=== PATIENT | male | born 1965 | race Caucasian/White ===

== ENCOUNTER 2020-02-25 14:59 | Outpatient (REF) | payer OTHER, SELFPAY ==
[2020-02-25 16:42] LABS: Basophils Absolute Auto 0.1 X10*3/uL (0.0-0.2); Basophils Percent Auto 0.9 % (0-2); Eosinophils Absolute Auto 0.1 X10*3/uL (0.0-0.4); Eosinophils Percent Auto 1.7 % (0-4); Hematocrit 43.6 % (42-52); Hemoglobin 14.8 g/dl (14.0-18.0); Imm Gran Abs Auto 0.02 X10*3/uL (0.00-0.03); Imm Gran Pct Auto 0.3 % (0.0-0.4); Lymphocytes Absolute Auto 2.4 X10*3/uL (1.2-4.9); Lymphocytes Percent Auto 34.5 % (20-40); MANUAL DIFF FLAG NO; Mean Corpuscular HGB Conc 33.9 g/dl (31.0-36.0); Mean Corpuscular Hemoglobin 30.6 pg (27.0-33.0); Mean Corpuscular Volume 90.1 fL (80-98); Mean Platelet Volume 10.6 fL (9.4-12.4); Monocytes Absolute Auto 0.7 X10*3/uL (0.1-1.2); Monocytes Percent Auto 9.6 % (2-11); Neutrophils Absolute Auto 3.7 X10*3/uL (2.0-8.3); Platelet Count 263 X10*3/uL (160-400); Red Blood Count 4.84 X10*6/uL (4.60-5.80); Red Cell Distribution Width 12.3 % (11.0-16.0)
[2020-02-25 17:07] LABS: Alanine Aminotransferase 19 U/L (0-40); Albumin Level 4.6 g/dL (3.5-5.0); Alkaline Phosphatase 86 U/L (39-117); Amylase 28 U/L (28-100); Anion Gap 14 (12-20); Aspartate Amino Transferase 18 U/L (5-37); Bilirubin Direct 0.2 mg/dL (0.0-0.5); Bilirubin Total 0.4 mg/dL (0.0-1.0); Blood Urea Nitrogen 14 mg/dL (9-16); Carbon Dioxide 28 mmol/L (22-29); Chloride 100 mmol/L (96-108); Estimated Glomerular Filt Rate > 60; Glucose Random 82 mg/dL (60-115); Lipase 24 U/L (8-78); Potassium 4.2 mmol/l (3.3-5.1); Sodium 138 mmol/L (135-145); Total Protein 7.2 g/dL (6.5-8.0)
[2020-02-25 17:28] LABS: TSH reflex Free T4 1.38 mIU/mL (0.32-4.0)
== END 2020-02-25 15:00 | disposition home or self-care (01) ==
LOC: HO.HMGCLDS 14:59
PROVIDERS: PCP Internal Medicine; Visit Provider Nurse Practitioner Family
DX: R10.9 Unspecified abdominal pain (principal)
CPT/HCPCS: 36415; 80048; 80076; 82150; 83690; 84443; 85025

== ENCOUNTER 2020-03-21 10:25 | Outpatient (REF) | payer OTHER, SELFPAY ==
--- NOTE | 2020-03-21 10:27 | US_ITS ---
EXAMINATION: US ABDOMEN COMPLETE CLINICAL INFORMATION: Unspecified abdominal pain. COMPARISON: CT abdomen with intravenous contrast dated 02/17/2006. TECHNIQUE: Real-time imaging of the abdominal viscera. FINDINGS: PANCREAS: Normal. ABDOMINAL AORTA: The proximal, mid, and distal segments are normal in caliber. INFERIOR VENA CAVA: Visualized portions are normal. LIVER: Normal. The liver is normal in size. The liver contour is normal. Parenchymal echogenicity is normal. No focal hepatic lesion. There is no intrahepatic biliary duct dilatation seen. GALLBLADDER: Normal. The gallbladder is physiologically distended without evidence of stones, sludge, polyps, wall thickening or pericholecystic fluid. COMMON BILE DUCT: Normal in caliber measuring 0.4 cm in diameter. RIGHT KIDNEY: Normal. No hydronephrosis. No renal calculi or focal parenchymal lesions. The kidney measures 10.7 cm in maximum dimension. LEFT KIDNEY: Normal. No hydronephrosis. No renal calculi or focal parenchymal lesions. The kidney measures 10.7 cm in maximum dimension. SPLEEN: Normal. The spleen measures 10.8 cm in maximum dimension. FREE FLUID: None. US/US abdomen complete IMPRESSION: Normal abdominal ultrasound.
== END 2020-03-21 10:26 | disposition home or self-care (01) ==
LOC: HO.HMGCX 10:25
PROVIDERS: PCP Internal Medicine; Visit Provider Internal Medicine
DX: R10.9 Unspecified abdominal pain (principal)
CPT/HCPCS: 76700

== ENCOUNTER 2020-03-31 17:21 | Outpatient (REF) | payer OTHER, SELFPAY | END 2020-03-31 17:22 | disposition home or self-care (01) | LOC: HO.LAB 17:21 | PROVIDERS: Visit Provider Internal Medicine | DX: Z20.828 Contact with and (suspected) exposure to other viral communicable diseases (principal) | CPT/HCPCS: C9803; U0003 ==

== ENCOUNTER 2020-05-05 13:25 | Outpatient (REF) | payer OTHER, SELFPAY ==
[2020-05-05 15:26] LABS: MANUAL DIFF FLAG NO
[2020-05-05 15:28] LABS: Basophils Absolute Auto 0.1 X10*3/uL (0.0-0.2); Basophils Percent Auto 0.6 % (0-2); Eosinophils Absolute Auto 0.1 X10*3/uL (0.0-0.4); Eosinophils Percent Auto 1.2 % (0-4); Hematocrit 45.9 % (42-52); Hemoglobin 15.1 g/dl (14.0-18.0); Imm Gran Abs Auto 0.04 X10*3/uL (0.00-0.03); Imm Gran Pct Auto 0.4 % (0.0-0.4); Lymphocytes Absolute Auto 1.9 X10*3/uL (1.2-4.9); Lymphocytes Percent Auto 20.9 % (20-40); Mean Corpuscular HGB Conc 32.9 g/dl (31.0-36.0); Mean Corpuscular Hemoglobin 29.7 pg (27.0-33.0); Mean Corpuscular Volume 90.4 fL (80-98); Mean Platelet Volume 10.1 fL (9.4-12.4); Monocytes Absolute Auto 0.9 X10*3/uL (0.1-1.2); Monocytes Percent Auto 9.7 % (2-11); Neutrophils Absolute Auto 6.1 X10*3/uL (2.0-8.3); Neutrophils Percent Auto 67.2 % (45-73); Platelet Count 275 X10*3/uL (160-400); Red Blood Count 5.08 X10*6/uL (4.60-5.80); Red Cell Distribution Width 12.3 % (11.0-16.0); White Blood Count 9.1 X10*3/uL (4.8-10.8)
[2020-05-05 15:52] LABS: Alanine Aminotransferase 16 U/L (0-40); Albumin Level 4.5 g/dL (3.5-5.0); Alkaline Phosphatase 88 U/L (39-117); Anion Gap 10 (12-20); Aspartate Amino Transferase 16 U/L (5-37); Bilirubin Total 0.5 mg/dL (0.0-1.0); Blood Urea Nitrogen 10 mg/dL (9-16); Calcium 9.3 mg/dL (8.4-10.2); Carbon Dioxide 31 mmol/L (22-29); Chloride 102 mmol/L (96-108); Cholesterol 198 mg/dL; Estimated Glomerular Filt Rate > 60; Glucose Fasting 77 mg/dL (60-99); HDL Cholesterol 50 mg/dL; LDL Cholesterol Calculated 131 mg/dl; Potassium 4.4 mmol/l (3.3-5.1); Sodium 139 mmol/L (135-145); Total Protein 6.9 g/dL (6.5-8.0); Triglycerides 85 mg/dL
[2020-05-05 16:16] LABS: Thyroid Stimulating Hormone 1.36 uIU/mL (0.32-4.0)
== END 2020-05-05 13:26 | disposition home or self-care (01) ==
LOC: HO.LAB 13:25
PROVIDERS: Internal Medicine; PCP Internal Medicine; Visit Provider Physician Assistant
DX: Z00.00 Encounter for general adult medical examination without abnormal findings (principal); E11.9 Type 2 diabetes mellitus without complications; E03.9 Hypothyroidism, unspecified; R63.4 Abnormal weight loss; R10.9 Unspecified abdominal pain
CPT/HCPCS: 36415; 80053; 80061; 84443; 85025

== ENCOUNTER 2020-06-05 07:51 | Outpatient (REF) | payer OTHER, SELFPAY | END 2020-06-05 07:52 | disposition home or self-care (01) | LOC: HO.CT 07:51 | PROVIDERS: Visit Provider Physician Assistant | DX: Z13.89 Encounter for screening for other disorder (principal) ==

== ENCOUNTER 2020-06-09 08:43 | Outpatient (REF) | payer OTHER, SELFPAY ==
--- NOTE | ~2020-06-09 | CT_ITS ---
EXAMINATION: CT ABDOMEN AND PELVIS WITH CONTRAST CLINICAL INFORMATION: Unspecified abdominal pain COMPARISON: Ultrasound abdomen 03/21/2020 TECHNIQUE: Multidetector volumetric images were obtained from the superior aspect of the liver through the pubic symphysis following administration 85 mL of Omnipaque 350 intravenous and oral contrast. Sagittal and coronal reformatted images were obtained on the technologist's workstation. This CT examination was performed using dose optimization techniques as appropriate, variously including the following: *Automated exposure control *Adjustment of mA and/or kV according to patient size (this includes techniques or standardized protocols for targeted exams where dose is matched to indication/reason for exam; i.e. extremities or head) *Use of iterative reconstruction technique DLP: 327 mGy-cm FINDINGS: LUNG BASES: There is minimal platelike atelectasis right lung base. The heart size is normal. Is there is moderate pectus excavatum deformity of the thoracic cage. LIVER, GALLBLADDER, AND BILIARY TREE: The liver is normal in size, shape, and attenuation. No focal hepatic lesion or biliary ductal dilatation is present. The gallbladder is unremarkable with no evidence of radiopaque gallstones, gallbladder wall thickening, or obvious pericholecystic inflammatory changes. PANCREAS: Unremarkable. SPLEEN: Unremarkable. ADRENAL GLANDS: Unremarkable. KIDNEYS AND URETERS: The kidneys are normal in size, shape, and attenuation. No hydronephrosis, hydroureter, or calculi seen. No perinephric stranding. BLADDER: Unremarkable. GASTROINTESTINAL TRACT: There is moderate stool and gas seen throughout the colon without any significant distention. The small bowel loops are normal caliber. No free air or free fluid seen. Appendix is normal caliber. ABDOMINAL WALL: No significant hernia is appreciated. LYMPH NODES: Normal. VASCULAR: Unremarkable. PELVIC VISCERA: The prostate gland is mildly enlarged. The periprostatic fat planes are preserved.. OSSEOUS STRUCTURES: There is loss of L5-S1 disc height with posterior spondylosis. No fracture or lytic process seen CT/CT abdomen pelvis w con IMPRESSION: Moderate constipation without obstruction. Moderate constipation without obstruction. Otherwise no acute intra-abdominal process seen.
[2020-06-09] MEDS: iohexoL 350 MG/ML 100 ML INFUS..BTL 85 ML IV (09:40)
[2020-06-09] MEDS: Barium Sulfate Oral (Berry) 450 ML ORAL.SUSP 900 ML PO (09:41)
[2020-06-09 10:20] LABS: Alanine Aminotransferase 25 U/L (0-40); Albumin Level 4.3 g/dL (3.5-5.0); Alkaline Phosphatase 92 U/L (39-117); Anion Gap 11 (12-20); Aspartate Amino Transferase 17 U/L (5-37); Bilirubin Total 0.5 mg/dL (0.0-1.0); Blood Urea Nitrogen 11 mg/dL (9-16); Calcium 9.4 mg/dL (8.4-10.2); Carbon Dioxide 29 mmol/L (22-29); Chloride 102 mmol/L (96-108); Estimated Glomerular Filt Rate > 60; Glucose Random 100 mg/dL (60-115); Potassium 4.7 mmol/L (3.3-5.1); Sodium 137 mmol/L (135-145); Total Protein 6.8 g/dL (6.5-8.0)
== END 2020-06-09 08:44 | disposition home or self-care (01) ==
LOC: HO.CT 08:43
PROVIDERS: PCP Internal Medicine; Visit Provider Physician Assistant
DX: R10.9 Unspecified abdominal pain (principal); R10.11 Right upper quadrant pain; R63.4 Abnormal weight loss
CPT/HCPCS: 36415; 74177; 80053; Q9967

== ENCOUNTER 2020-09-18 06:53 | Inpatient (IN) | payer OTHER, SELFPAY ==
[2020-09-18] VITALS (15 sets, daily range): BP systolic 108–151; BP diastolic 60–80; PULSE 61–90; RESP 12–18; TEMP 36.1–37; O2SAT 96–99; BMI 28.4; BMI 23.7
--- NOTE | ~2020-09-18 | XR_ITS ---
EXAMINATION: XR CHEST CLINICAL INFORMATION: Chest pain and syncope COMPARISON: Chest 11/28/2019 TECHNIQUE: 2 views of the chest were obtained. FINDINGS: No significant abnormality is noted involving the heart, lungs, mediastinum, bony thorax or soft tissues. XR/XR chest 2V IMPRESSION: Unremarkable chest exam
--- NOTE | ~2020-09-18 | XR_ITS ---
EXAMINATION: XR CHEST CLINICAL INFORMATION: Pacemaker COMPARISON: Previous chest x-ray, most recent from yesterday TECHNIQUE: Frontal view of the chest was obtained. FINDINGS: The cardiac and mediastinal contours are stable. There is a left subclavian dual chamber pacemaker in satisfactory position. The lungs are clear. There is no pleural effusion or pneumothorax. Bony structures are unremarkable. XR/XR chest 1V IMPRESSION: Satisfactory appearance of left subclavian dual chamber pacemaker.
--- NOTE | ~2020-09-18 | FL_ITS ---
EXAMINATION: XR FLUOROSCOPY WITH IMAGES CLINICAL INFORMATION: Fluoroscopy guidance for pacemaker placement COMPARISON: Previous chest x-ray from earlier the same day TECHNIQUE: Fluoroscopy performed by Dr. Jessica Martinez. Fluoroscopy time: 3.3 minutes DAP: 11 mGycm2 Images: 1 FINDINGS: Single AP fluoroscopic view of the chest demonstrates a dual-chamber pacemaker in satisfactory position. FL/FL guidance in OR IMPRESSION: Fluoroscopy guidance for pacemaker placement.
--- NOTE | ~2020-09-18 | XR_ITS ---
EXAMINATION: PORTABLE CHEST 1 VIEW CLINICAL INFORMATION: Pacer . COMPARISON: 09/18/2020 study earlier today. TECHNIQUE: Portable frontal view of the chest was obtained. FINDINGS: The lungs are well expanded. No focal infiltrate, effusion, edema, or pneumothorax. Tiny calcified granulomas incidentally seen in the upper lobes bilaterally. Cardiac and mediastinal silhouettes are within normal limits for technique. New dual-lead pacemaker seen with lead tips overlying the expected right atrium and right ventricle. No acute bony abnormality seen. XR/XR chest 1V IMPRESSION: New dual-lead left-sided pacemaker. No pneumothorax.
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
--- NOTE | 2020-09-18 07:07 | ECG_ITS ---
Test Reason : BRADYCARDIA Blood Pressure : / mmHG Vent. Rate : 061 BPM Atrial Rate : 061 BPM P-R Int : 206 ms QRS Dur : 092 ms QT Int : 418 ms P-R-T Axes : 039 -14 046 degrees QTc Int : 420 ms Normal sinus rhythm Normal ECG When compared with ECG of 28-NOV-2019 10:45, No significant change was found Referred By: Edward Beckford Electronically Signed By:JUNE CHRISTOPHER MD
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
[2020-09-18] MEDS: 0.9 % Sodium Chloride 1,000 ML 999 ML IV (07:46)
[2020-09-18 08:06] LABS: MANUAL DIFF FLAG NO
[2020-09-18 08:08] LABS: Basophils Percent Auto 0.3 % (0-2); Eosinophils Absolute Auto 0.1 X10*3/uL (0.0-0.4); Eosinophils Percent Auto 0.5 % (0-4); Hematocrit 43.3 % (42-52); Hemoglobin 14.8 g/dl (14.0-18.0); Imm Gran Abs Auto 0.06 X10*3/uL (0.00-0.03); Imm Gran Pct Auto 0.5 % (0.0-0.4); Lymphocytes Absolute Auto 1.3 X10*3/uL (1.2-4.9); Lymphocytes Percent Auto 10.7 % (20-40); Mean Corpuscular HGB Conc 34.2 g/dl (31.0-36.0); Mean Corpuscular Hemoglobin 30.1 pg (27.0-33.0); Mean Platelet Volume 9.7 fL (9.4-12.4); Monocytes Absolute Auto 0.8 X10*3/uL (0.1-1.2); Monocytes Percent Auto 6.8 % (2-11); Neutrophils Absolute Auto 9.5 X10*3/uL (2.0-8.3); Neutrophils Percent Auto 81.2 % (45-73); Platelet Count 221 X10*3/uL (160-400); Red Blood Count 4.92 X10*6/uL (4.60-5.80); White Blood Count 11.6 X10*3/uL (4.8-10.8)
[2020-09-18 08:31] LABS: COVID-19 Test Negative (Negative)
[2020-09-18 08:31] LABS: Ethanol < 10 mg/dL
[2020-09-18 08:35] LABS: Alanine Aminotransferase 21 U/L (0-40); Albumin Level 4.1 g/dL (3.5-5.0); Alkaline Phosphatase 98 U/L (39-117); Anion Gap 13 (12-20); Aspartate Amino Transferase 16 U/L (5-37); Bilirubin Total 0.4 mg/dL (0.0-1.0); Blood Urea Nitrogen 12 mg/dL (9-16); Calcium 9.7 mg/dL (8.4-10.2); Carbon Dioxide 25 mmol/L (22-29); Chloride 105 mmol/L (96-108); Creatinine Clr Calc Pharmacy 106.5; Estimated Glomerular Filt Rate > 60; Glucose Random 107 mg/dL (60-115); Lipase 17 U/L (8-78); Potassium 3.6 mmol/L (3.3-5.1); Sodium 139 mmol/L (135-145); Total Protein 6.5 g/dL (6.5-8.0)
[2020-09-18 08:37] LABS: Troponin-I High Sensitivity < 3.5 ng/L (<3.5-35.0)
[2020-09-18 08:38] LABS: Partial Thromboplastin Time 30.9 SEC (24.1-38.0)
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
[2020-09-18 10:56] LABS: Glucose Urine UA NEG (NEG); Leukocyte Esterase Urine NEG (NEG); Nitrite Urine NEG (NEG); PH 7.5 (5.0-8.0); Urine Blood NEG (NEG); Urine Ketones NEG (NEG); Urine Protein NEG (NEG-TRACE)
[2020-09-18 10:57] LABS: Appearance Urine CLEAR; Color Urine YELLOW
[2020-09-18 11:24] LABS: Amphetamine Screen Urine Not Detected (Not Detect); Barbiturates, Urine Not Detected (Not Detect); Benzodiazepines Screen Urine Not Detected (Not Detect); Cannabinoid Screen Urine Not Detected (Not Detect); Cocaine Screen Urine Not Detected (Not Detect); Opiate Screen Urine Not Detected (Not Detect); Phencyclidine Screen Urine Not Detected (Not Detect)
--- NOTE | 2020-09-18 12:04 | PC.NURSE ---
managing partner at bedside talking to the pt
--- NOTE | 2020-09-18 12:58 | PM.CNCAR ---
History of Present Illness History of Present Illness Date of Service: 09/18/20 Requesting physician: Meet [facility] Consult reason: other (Syncope) Chief complaint: syncope d/t bradycardia with sinus pause Narrative: I was requested to see Chandler in cardiology consultation today for symptoms of syncope. He is a pleasant 54-year-old male with no prior significant past medical history except for syncope last year for which she had some investigation but no obvious etiology. He has been generally feeling very well overall and has no recent symptoms. Today was driving to work, went over the hill towards [place] very he works and he felt lightheaded and was feeling like he was going to pass out. He therefore pulled over of the road and any passed out. After he regained consciousness he called the ambulance and was brought to the emergency room. Initial workup in the emergency room was within normal limits he was in sinus rhythm. However while he was laying down in bed with no obvious advise stimuli, he felt like he was going to pass out again and on the monitor had up to 10 second pause. He said that the symptoms of milder but definitely felt like he was going to pass out. No interventions were made. Patient then recovered. And has remained in sinus rhythm. Blood pressures been stable. He is not on any new medicines of recent origin. Does not usually see a physician. He says he is active and has no exertional chest pain or shortness of breath. No recent systemic symptoms. No recent travels or any insect/tick bites. He has no prior history of syncope in the past except for last year when he was working on the roof and then when he came back into the house he felt similar symptoms and had passed out. Review of Systems Constitutional: Constitutional: Reports no additional constitutional complaints Cardiovascular: Cardiovascular: Denies chest pain, Denies chest pain at rest, Denies chest pain with activity, Reports lightheadedness, Reports Loss of Consciousness, Denies palpitations, Denies dyspnea and Denies dyspnea on exertion Respiratory: Respiratory: Reports no additional respiratory complaints, Denies dyspnea and Denies dyspnea on exertion Gastrointestinal: Gastrointestinal: Reports no additional gastrointestinal complaints Genitourinary: Genitourinary: Reports no additional male genitourinary complaints Musculoskeletal: Musculoskeletal: Reports no additional musculoskeletal complaints Integumentary/Breasts: Skin/Breast: Reports system reviewed and no additional complaints, except as docu Neurologic: Reports system reviewed and no additional complaints, except as documented Psychiatric: Psychiatric: Reports no additional psychiatric complaints Endocrine: Endocrine: Reports no additional endocrine complaints and Denies palpitations Hematologic/Lymphatic: Hematologic/Lymphatic: Reports no additional hematologic/lymphatic complaints [facility] Family History Family History Father No problems noted. Mother No problems noted. Surgical History Surgical History No pertinent past surgical history Social History Social History Alcohol intake: current Alcohol intake frequency: holidays/special occasions only Cigarettes Per Day: 15 Advance Directives: Yes Advance Directives Information Provided: Yes Advance Directives on File: No Meds Allergies Allergy/AdvReac Type Severity Reaction Status Date / Time No Known Allergies Allergy Verified 05/05/20 13:44 [No Known Allergies*] Active Medications: Current Medications Generic Name Dose Route Start Last Admin Trade Name Freq PRN Reason Stop Dose Admin Pharmacy Consult 1 each 09/18/20 09:54 Consult Rx Perform Med Rec MISCELLANE ONCE PRN Consult order Home Medications Medication Instructions Recorded Confirmed Last Taken Type multivitamin 1 tab PO QAM 03/10/20 09/18/20 Unknown History Physical Exam Vital Signs: Vital Signs: Last Vital Signs Temp 98.6 F 09/18/20 08:08 Pulse 72 09/18/20 09:39 Resp 16 09/18/20 09:39 BP 140/72 H 09/18/20 09:39 Pulse Ox 98 09/18/20 09:39 Body Mass Index 28.4 Const: General: cooperative, comfortable, no acute distress, alert and awake Nutritional Appearance: average body habitus Orientation/consciousness: patient oriented x3 Limitations: no limitations HENMT: Head: Yes normocephalic and Yes atraumatic Neck: Neck: Yes trachea midline and Yes no JVD Resp: Effort & Inspection: normal respiratory effort Auscultation: clear to auscultation bilaterally Cardio: Jugular venous distension: no JVD Palpation: normal PMI Rate: regular rate Rhythm: regular rhythm Heart sounds: S1 normal heart sound present and S2 normal heart sound present GI: Auscultation: normal bowel sounds Skin: General skin exam: no rashes or lesions noted Neuro: General: patient oriented x3 and no focal motor deficits Extrem: General: Yes no clubbing, cyanosis or edema Psych: Appearance: grossly normal Results Labs and Meds Result diagrams: 09/18/20 08:02 09/18/20 08:02 Lab results: Laboratory Results - last 24 hr 09/18/20 09/18/20 09/18/20 08:01 08:02 08:02 WBC 11.6 H RBC 4.92 Hgb 14.8 Hct 43.3 MCV 88.0 MCH 30.1 MCHC 34.2 RDW 12.0 Plt Count 221 MPV 9.7 Immature Gran % (Auto) 0.5 H Neut % (Auto) 81.2 H Lymph % (Auto) 10.7 L Walker % (Auto) 6.8 Eos % (Auto) 0.5 Baso % (Auto) 0.3 Lymph # (Auto) 1.3 Walker # (Auto) 0.8 Eos # (Auto) 0.1 Baso # (Auto) 0.0 Abs Immat Gran (auto) 0.06 H Absolute Neuts (auto) 9.5 H Absolute Nucleated RBC 0.000 Nucleated RBC % (auto) 0.0 PT 12.0 INR 1.0 APTT 30.9 Sodium Potassium Chloride Carbon Dioxide Anion Gap BUN Creatinine Estim Creat Clear Calc Estimated GFR Random Glucose Calcium Total Bilirubin AST ALT Alkaline Phosphatase Troponin I High Sens Total Protein Albumin Lipase TSH Urine Color Urine Appearance Urine pH Ur Specific [place] Urine Protein Urine Glucose (UA) Urine Ketones Urine Blood Urine Nitrite Ur Leukocyte Esterase Urine Opiates Screen Ur Barbiturates Screen Ur Phencyclidine Scrn Ur Amphetamines Screen U Benzodiazepines Scrn Urine Cocaine Screen U Marijuana (THC) Screen Ethyl Alcohol < 10 COVID-19 ([facility]) COVID-19 Clin Com 09/18/20 09/18/20 09/18/20 08:02 08:02 08:02 WBC RBC Hgb Hct MCV MCH MCHC RDW Plt Count MPV Immature Gran % (Auto) Neut % (Auto) Lymph % (Auto) Walker % (Auto) Eos % (Auto) Baso % (Auto) Lymph # (Auto) Walker # (Auto) Eos # (Auto) Baso # (Auto) Abs Immat Gran (auto) Absolute Neuts (auto) Absolute Nucleated RBC Nucleated RBC % (auto) PT INR APTT Sodium 139 Potassium 3.6 D Chloride 105 Carbon Dioxide 25 Anion Gap 13 BUN 12 Creatinine 0.97 Estim Creat Clear Calc 106.5 Estimated GFR > 60 Random Glucose 107 Calcium 9.7 Total Bilirubin 0.4 AST 16 ALT 21 Alkaline Phosphatase 98 Troponin I High Sens < 3.5 Total Protein 6.5 Albumin 4.1 Lipase 17 TSH 1.60 Urine Color Urine Appearance Urine pH Ur Specific [place] Urine Protein Urine Glucose (UA) Urine Ketones Urine Blood Urine Nitrite Ur Leukocyte Esterase Urine Opiates Screen Ur Barbiturates Screen Ur Phencyclidine Scrn Ur Amphetamines Screen U Benzodiazepines Scrn Urine Cocaine Screen U Marijuana (THC) Screen Ethyl Alcohol COVID-19 ([facility]) Negative COVID-19 Clin Com See Note 09/18/20 09/18/20 10:47 10:47 WBC RBC Hgb Hct MCV MCH MCHC RDW Plt Count MPV Immature Gran % (Auto) Neut % (Auto) Lymph % (Auto) Walker % (Auto) Eos % (Auto) Baso % (Auto) Lymph # (Auto) Walker # (Auto) Eos # (Auto) Baso # (Auto) Abs Immat Gran (auto) Absolute Neuts (auto) Absolute Nucleated RBC Nucleated RBC % (auto) PT INR APTT Sodium Potassium Chloride Carbon Dioxide Anion Gap BUN Creatinine Estim Creat Clear Calc Estimated GFR Random Glucose Calcium Total Bilirubin AST ALT Alkaline Phosphatase Troponin I High Sens Total Protein Albumin Lipase TSH Urine Color YELLOW Urine Appearance CLEAR Urine pH 7.5 Ur Specific [place] 1.010 Urine Protein NEG Urine Glucose (UA) NEG Urine Ketones NEG Urine Blood NEG Urine Nitrite NEG Ur Leukocyte Esterase NEG Urine Opiates Screen Not Detected Ur Barbiturates Screen Not Detected Ur Phencyclidine Scrn Not Detected Ur Amphetamines Screen Not Detected U Benzodiazepines Scrn Not Detected Urine Cocaine Screen Not Detected U Marijuana (THC) Screen Not Detected Ethyl Alcohol COVID-19 ([facility]) COVID-19 Clin Com EKG shows normal sinus rhythm with normal EKG Imaging Radiologist's impression: Impressions Chest X-Ray 09/18/20 07:08 IMPRESSION: Unremarkable chest exam Assessment and Plan (1) Syncope: Qualifiers: Encounter type: initial encounter Status: Acute Syncope while driving in a middle-aged man with no obvious past medical history and no recent changes in health. Lab work is within normal limits. Patient not on any [id number] medication any other medications that could explain this. While in the ED patient other near syncopal event with the almost a 12nd sinus pause. This is either suggestive of sick sinus syndrome and/or malignant cardio inhibitory vasovagal type syncope. Either way I think patient will benefit with a dual-chamber pacemaker. This was discussed with him. He was a little surprised and taken back but he is agreeable. This will prevent future life-threatening syncopal events in situations such as driving. Dual-chamber pacemaker with rate drop response will be placed. Is advised him manage adequate hydration. Case was discussed with Dr. Martinez for placement of pacemaker and will be done later today. Will continue to follow with the patient. Thank you for allowing me to partake in his care Procedures Date of Service Date of Service: 09/18/20
--- NOTE | 2020-09-18 13:26 | PC.NURSE ---
REPORT GIVEN TO PEDRO IN [facility]
--- NOTE | 2020-09-18 13:47 | MHC.SHP ---
Pre-Procedural Eval Section B Chief Complaint: syncope d/t bradycardia with sinus pause Allergies: Allergies Allergy/AdvReac Type Severity Reaction Status Date / Time No Known Allergies Allergy Verified 05/05/20 13:44 [No Known Allergies*] Plan I have reviewed the history and physical and performed a pertinent physical examination on my patient. No changes have occurred unless specified.
--- NOTE | 2020-09-18 16:10 | P.CONGS_ITS ---
History of Present Illness Consult details Consult date: 09/18/20 Reason for consult: other (Syncope) Requesting physician: Melchor Hernandez Narrative: 54-year-old gentleman with no significant past medical history who had a history of about a year ago of a syncopal episode and workup revealed no any allergy at that time. He presented today after driving his car feeling like he was going to pass out when he pulled over it sounds like he passed out for period of time and then was brought into the emergency department. Initial workup in the emergency department was negative however while he was lying in bed without any a of the her stimuli he did have a 12nd pause which prompted some further investigation without etiology. He denies chest pain, fevers, chills, shortness of breath, cough, or palpitations. Review of Systems Review of Systems: Yes all other systems are reviewed and are negative PMF Family History Family History Father No problems noted. Mother No problems noted. Surgical History Surgical History No pertinent past surgical history Social History Social History Alcohol intake: current Alcohol intake frequency: holidays/special occasions only Patient Tobacco Use Status: Current everyday Tobacco user Cigarettes Per Day: 15 Years Smoked: 30 Meds Allergies Allergy/AdvReac Type Severity Reaction Status Date / Time No Known Allergies Allergy Verified 05/05/20 13:44 [No Known Allergies*] Active Medications: Current Medications Generic Name Dose Route Start Last Admin Trade Name Freq PRN Reason Stop Dose Admin Pharmacy Consult 1 each 09/18/20 09:54 Consult Rx Perform Med Rec MISCELLANE ONCE PRN Consult order Home Medications Medication Instructions Recorded Confirmed Last Taken Type multivitamin 1 tab PO QAM 03/10/20 09/18/20 Unknown History Physical Exam Vital Signs: Vital Signs: Last Vital Signs Temp 98.2 F 09/18/20 14:16 Pulse 77 09/18/20 14:16 Resp 16 09/18/20 14:16 BP 136/71 09/18/20 14:16 Pulse Ox 98 09/18/20 14:16 Body Mass Index 23.7 Const: Other: General: No acute distress HEENT: Moist mucous membranes, normocephalic, pupils equal round and reactive to light. Neck: No thyromegaly, supple, no JVD Lymph: No cervical, supraclavicular, or other lymphadenopathy Chest: No chest wall abnormalities or deformities Heart: Regular rate and rhythm Lungs: Clear to auscultation bilaterally Abdomen: Soft, nontender, normal bowel sounds Extremities: No edema, cyanosis, or clubbing. Full range of motion Neuro: Grossly intact, alert and oriented x3, and nonfocal Skin: Warm and dry no rashes Affect: Normal Results Labs Result diagrams: 09/18/20 08:02 09/18/20 08:02 Labs: Abnormal lab results 09/18/20 Range/Units 08:02 WBC 11.6 H (4.8-10.8) X10*3/uL Immature Gran % (Auto) 0.5 H (0.0-0.4) % Neut % (Auto) 81.2 H (45-73) % Lymph % (Auto) 10.7 L (20-40) % Abs Immat Gran (auto) 0.06 H (0.00-0.03) X10*3/uL Absolute Neuts (auto) 9.5 H (2.0-8.3) X10*3/uL Short CBC 09/18/20 Range/Units 08:02 WBC 11.6 H (4.8-10.8) X10*3/uL Hgb 14.8 (14.0-18.0) g/dl Hct 43.3 (42-52) % Plt Count 221 (160-400) X10*3/uL BMP 09/18/20 08:02 Sodium 139 Potassium 3.6 D Chloride 105 Carbon Dioxide 25 BUN 12 Creatinine 0.97 Calcium 9.7 Liver Function 09/18/20 Range/Units 08:02 Total Bilirubin 0.4 (0.0-1.0) mg/dL AST 16 (5-37) U/L ALT 21 (0-40) U/L Alkaline Phosphatase 98 (39-117) U/L Albumin 4.1 (3.5-5.0) g/dL Urine 09/18/20 Range/Units 10:47 Urine Color YELLOW Urine Appearance CLEAR Urine pH 7.5 (5.0-8.0) Ur Specific [place] 1.010 (1.005-1.025) Urine Protein NEG (NEG-TRACE) MG/DL Urine Glucose (UA) NEG (NEG) MG/DL All other labs normal. Assessment and Plan (1) Syncope: Qualifiers: Encounter type: initial encounter Status: Acute 54-year-old gentleman with multiple syncopal episodes and found in the emergency department to have a 12nd pause in his EKG tracing. Agree with dual- chamber permanent pacemaker placement and I discussed the risks, benefits, and alternatives of this operation which he understood and agreed to proceed. The patient is NPO and will proceed to the operating room today. (2) Bradycardia: Status: Acute Procedures Date of Service Date of Service: 09/18/20
--- NOTE | 2020-09-18 16:13 | P.CONAN_ITS ---
[facility] Active Problems Active Problems: All Active Problems (Updated 09/18/20 @ 09:56 by Edward young MD) Syncope (Acute) Bradycardia (Acute) Weight loss (Acute) Abdominal pain (Acute) Abdominal discomfort (Acute) Family History Family History Father No problems noted. Mother No problems noted. Surgical History Surgical History No pertinent past surgical history Social History Social History Alcohol intake: current Alcohol intake frequency: holidays/special occasions only Patient Tobacco Use Status: Current everyday Tobacco user Cigarettes Per Day: 15 Years Smoked: 30 Meds Allergies Allergy/AdvReac Type Severity Reaction Status Date / Time No Known Allergies Allergy Verified 05/05/20 13:44 [No Known Allergies*] Active Medications: Current Medications Generic Name Dose Route Start Last Admin Trade Name Freq PRN Reason Stop Dose Admin Pharmacy Consult 1 each 09/18/20 09:54 Consult Rx Perform Med Rec MISCELLANE ONCE PRN Consult order Home Medications Medication Instructions Recorded Confirmed Last Taken Type multivitamin 1 tab PO QAM 03/10/20 09/18/20 Unknown History Exam Exam Date and Time: September 18, 2020 1613 Height,Weight and Vital Signs: Height 6 ft 3 in Weight 86.183 kg Last Vital Signs Temp 98.2 F 09/18/20 14:16 Pulse 77 09/18/20 14:16 Resp 16 09/18/20 14:16 BP 136/71 09/18/20 14:16 Pulse Ox 98 09/18/20 14:16 Pertinent Lab Results Pertinent Lab Results: Laboratory Tests 09/18/20 09/18/20 09/18/20 08:01 08:02 08:02 WBC 11.6 H RBC 4.92 Hgb 14.8 Hct 43.3 MCV 88.0 MCH 30.1 MCHC 34.2 RDW 12.0 Plt Count 221 MPV 9.7 Immature Gran % (Auto) 0.5 H Neut % (Auto) 81.2 H Lymph % (Auto) 10.7 L [place] % (Auto) 6.8 Eos % (Auto) 0.5 Baso % (Auto) 0.3 Lymph # (Auto) 1.3 [place] # (Auto) 0.8 Eos # (Auto) 0.1 Baso # (Auto) 0.0 Abs Immat Gran (auto) 0.06 H Absolute Neuts (auto) 9.5 H Absolute Nucleated RBC 0.000 Nucleated RBC % (auto) 0.0 PT 12.0 INR 1.0 APTT 30.9 Sodium Potassium Chloride Carbon Dioxide Anion Gap BUN Creatinine Estim Creat Clear Calc Estimated GFR Random Glucose Calcium Total Bilirubin AST ALT Alkaline Phosphatase Troponin I High Sens Total Protein Albumin Lipase TSH Urine Color Urine Appearance Urine pH Ur Specific [place] Urine Protein Urine Glucose (UA) Urine Ketones Urine Blood Urine Nitrite Ur Leukocyte Esterase Urine Opiates Screen Ur Barbiturates Screen Ur Phencyclidine Scrn Ur Amphetamines Screen U Benzodiazepines Scrn Urine Cocaine Screen U Marijuana (THC) Screen Ethyl Alcohol < 10 COVID-19 ([facility]) COVID-[employer] 09/18/20 09/18/20 09/18/20 08:02 08:02 08:02 WBC RBC Hgb Hct MCV MCH MCHC RDW Plt Count MPV Immature Gran % (Auto) Neut % (Auto) Lymph % (Auto) [place] % (Auto) Eos % (Auto) Baso % (Auto) Lymph # (Auto) [place] # (Auto) Eos # (Auto) Baso # (Auto) Abs Immat Gran (auto) Absolute Neuts (auto) Absolute Nucleated RBC Nucleated RBC % (auto) PT INR APTT Sodium 139 Potassium 3.6 D Chloride 105 Carbon Dioxide 25 Anion Gap 13 BUN 12 Creatinine 0.97 Estim Creat Clear Calc 106.5 Estimated GFR > 60 Random Glucose 107 Calcium 9.7 Total Bilirubin 0.4 AST 16 ALT 21 Alkaline Phosphatase 98 Troponin I High Sens < 3.5 Total Protein 6.5 Albumin 4.1 Lipase 17 TSH 1.60 Urine Color Urine Appearance Urine pH Ur Specific [place] Urine Protein Urine Glucose (UA) Urine Ketones Urine Blood Urine Nitrite Ur Leukocyte Esterase Urine Opiates Screen Ur Barbiturates Screen Ur Phencyclidine Scrn Ur Amphetamines Screen U Benzodiazepines Scrn Urine Cocaine Screen U Marijuana (THC) Screen Ethyl Alcohol COVID-19 ([facility]) Negative COVID-[employer] See Note 09/18/20 09/18/20 10:47 10:47 WBC RBC Hgb Hct MCV MCH MCHC RDW Plt Count MPV Immature Gran % (Auto) Neut % (Auto) Lymph % (Auto) [place] % (Auto) Eos % (Auto) Baso % (Auto) Lymph # (Auto) [place] # (Auto) Eos # (Auto) Baso # (Auto) Abs Immat Gran (auto) Absolute Neuts (auto) Absolute Nucleated RBC Nucleated RBC % (auto) PT INR APTT Sodium Potassium Chloride Carbon Dioxide Anion Gap BUN Creatinine Estim Creat Clear Calc Estimated GFR Random Glucose Calcium Total Bilirubin AST ALT Alkaline Phosphatase Troponin I High Sens Total Protein Albumin Lipase TSH Urine Color YELLOW Urine Appearance CLEAR Urine pH 7.5 Ur Specific [place] 1.010 Urine Protein NEG Urine Glucose (UA) NEG Urine Ketones NEG Urine Blood NEG Urine Nitrite NEG Ur Leukocyte Esterase NEG Urine Opiates Screen Not Detected Ur Barbiturates Screen Not Detected Ur Phencyclidine Scrn Not Detected Ur Amphetamines Screen Not Detected U Benzodiazepines Scrn Not Detected Urine Cocaine Screen Not Detected U Marijuana (THC) Screen Not Detected Ethyl Alcohol COVID-19 ([facility]) COVID-19 Clin Com Airway Mallampati Class: II TM Dist: >3cm Neck ROM: Full Loose/Missing/Broken Teeth: Yes, Upper and Lower Heart: RRR Lungs: CTA Assessment and Plan Assessment Anesthesia Assessment: Anesthesia Plan Discussed and Smoking Cess. Discussed Final Anesthetic Review NPO: Yes ASA Class: III and Emergency Final Preanesthetic Review: No Changes in Pt Med Stat, Meds/Allgs Chart Reviewed, Consent Obtained/Reviewed and Anes Risks/Benef Reviewed Patient Risk: Intermediate Procedure Risk: Low Anesthetic Plan Anesthetic Plan: MAC: Disposition: Standard PACU
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
--- NOTE | 2020-09-18 17:40 | P.OP_ITS ---
Operative Note Operative Note Date of Service: 09/18/20 Narrative: Preoperative diagnosis: Syncope with 10 second pauses Postoperative diagnosis: Same Operation: Placement of dual-chamber permanent pacemaker with fluoroscopic guidance Surgeon: Jsesica Martinez MD Specimens: None EBL: 5 cc Operative findings: The pacemaker placed was a Medtronic serial number [id number]. the atrial lead placed was a Medtronic serial [id number]. The right ventricular lead placed was a Medtronic [id number]. The patient's parameters in the atrial lead the threshold was 0.5 volts at 0.4 milliseconds with an impedance of 532 Ohms and a P-wave of 3.12. In the ventricular lead the threshold was 0.6 volts at 0.4 milliseconds with an impedance of 931 Ohms and an R-wave of 5.2 mV. Patient tolerated procedure well. Operation in detail: The patient was brought to the operating room, placed supine on the operating room table, anesthesia moderate of ices were placed, and the patient was gently sedated. A time-out was performed confirming the correct patient site and procedure. After injection of local anesthetic, a 3 cm incision was made in the left infraclavicular region and carried down to the pectoralis fascia with electrocautery. The patient was then placed in Trendelenburg and an 18 gauge needle was used to access subclavian vein on the 1st take. And a wire was placed into the right atrium under fluoroscopic guidance. A 2nd 18 gauge needle was then used to access the subclavian vein again on the 1st ache and a wire was placed under fluoroscopic guidance and parked in the right atrium. The patient was then taken out of Trendelen[place] and a pocket was formed using blunt and electrocautery dissection. The 1st 6 Hungarian sheath was then placed over wire and the wire and dilator were removed. The ventricular lead was then placed through the sheath and parked in the right atrium and the peel-away sheath was removed. After several attempts using a curved stylet we were eventually able to access the right ventricle and the tip of the lead was positioned at the right ventricular apex. The endocardial screw was deployed and the lead was tested with excellent parameters above. This lead was then secured with silk sutures to the pectoralis fascia. The 2nd 6 Hungarian sheath was then placed over the 2nd wire and a wire dilator removed. The atrial lead was then placed and parked in the right atrium. AJ stylet was used to position this in the right atrial appendage. The endocardial screws deployed and the lead was tested with excellent parameters above. This lead was also secured with silk sutures to the pectoralis fascia. The pocket was then copiously irrigated with antibiotic solution. The leads were then placed in their appropriate receptacles and the pacemaker was tested again with excellent parameters. The generator and excess lead was then placed into the pocket. The wound was then closed with a deep running 3-0 Vicryl suture followed by running 3-0 Vicryl suture and Dermabond glue in the skin. The patient was then brought back to the ICU in stable condition.
[2020-09-18] MEDS: 0.9 % Sodium Chloride 1,000 ML 100 ML IVCONT (20:43)
[2020-09-18] MEDS: 0.9 % Sodium Chloride Flush 3 ML SYRINGE IVFLUSH (20:53)
[2020-09-19 04:00] VITALS: BP 129/65; PULSE 72; RESP 18; TEMP 36.8; O2SAT 97
[2020-09-19 07:30] VITALS: BP 132/65; PULSE 71; RESP 18; TEMP 36.4; O2SAT 97
--- NOTE | 2020-09-19 09:53 | HO.POSTANES ---
Post Anesthesia Evaluation Post Anesthesia Evaluation Vital Signs: Vital Signs Temp Pulse Resp BP Pulse Ox 09/19/20 07:30 97.6 F 71 18 132/65 97 09/19/20 04:00 98.2 F 72 18 129/65 97 09/18/20 23:35 97.5 F 76 18 117/68 96 Anesthesia: General Mental Status: Awake Pain Control: Satisfactory Nausea/Vomiting: None Hydration: Adequate Anesthesia-Related Issues: No Anes. Related Issues
--- NOTE | 2020-09-19 10:22 | P.PNCA_ITS ---
Subjective Subjective Date of Service: 09/19/20 Principal diagnosis: Syncope, sinus pauses Interval history: Patient status post dual-chamber pacemaker last night. Doing well. Some discomfort at the pacer site. No major other complaints at this point in time. Pacemaker was checked and reprogrammed with rate drop response turned on. Review of Systems Constitutional: Reports no additional constitutional complaints Cardiovascular: Reports no additional cardiovascular complaints Respiratory: Reports no additional respiratory complaints Gastrointestinal: Reports no additional gastrointestinal complaints Reports system reviewed and no additional complaints, except as documented Endocrine: Reports no additional endocrine complaints Physical Exam Vital Signs: Last Vital Signs Temp 97.6 F 09/19/20 07:30 Pulse 71 09/19/20 07:30 Resp 18 09/19/20 07:30 BP 132/65 09/19/20 07:30 Pulse Ox 97 09/19/20 07:30 Body Mass Index 23.7 Const Orientation/consciousness: patient oriented x3 HENMT Head: Yes normocephalic and Yes atraumatic Neck Neck: Yes trachea midline, Yes supple and Yes no JVD Resp Effort & Inspection: normal respiratory effort Auscultation: clear to auscultation bilaterally Cardio Jugular venous distension: no JVD Palpation: normal PMI Rate: regular rate Rhythm: regular rhythm Heart sounds: S1 normal heart sound present and S2 normal heart sound present Neuro General: patient oriented x3 and no focal motor deficits Extrem General: Yes no clubbing, cyanosis or edema Results Labs and Meds Result diagrams: 09/18/20 08:02 09/18/20 08:02 Lab results: Laboratory Results - last 24 hr 09/18/20 09/18/20 10:47 10:47 Urine Color YELLOW Urine Appearance CLEAR Urine pH 7.5 Ur Specific [place] 1.010 Urine Protein NEG Urine Glucose (UA) NEG Urine Ketones NEG Urine Blood NEG Urine Nitrite NEG Ur Leukocyte Esterase NEG Urine Opiates Screen Not Detected Ur Barbiturates Screen Not Detected Ur Phencyclidine Scrn Not Detected Ur Amphetamines Screen Not Detected U Benzodiazepines Scrn Not Detected Urine Cocaine Screen Not Detected U Marijuana (THC) Screen Not Detected Imaging Radiologist's impression: Impressions Guidance Fluoroscopy 09/18/20 14:08 IMPRESSION: Fluoroscopy guidance for pacemaker placement. Chest X-Ray 09/18/20 18:08 IMPRESSION: New dual-lead left-sided pacemaker. No pneumothorax. Progress Note: A&P Assessment and plan (1) Syncope: Status: Acute Assessment and Plan: Syncope in patient with significant sinus pause at rest without any clear provocation. Likelihood of sick sinus syndrome is low however malignant cardio inhibitory vasovagal syncope is possibility. Both can be treated well with a pacing therapy which he underwent yesterday. Pacemaker is working well. Reprogrammed with rate drop response turned on. Once chest x-rays performed, patient can be discharged home. Outpatient workup with echocardiogram will be pursued. This was discussed with the patient. He understands and agrees. Fall Risk Details Current Medications: Current Medications Generic Name Dose Route Start Last Admin Trade Name Freq PRN Reason Stop Dose Admin Acetaminophen 650 mg 09/18/20 19:49 Acetaminophen Supp 650 Mg Supp.Rect AK Q6H PRN Pain, Mild (Pain Scale 1-3) Lactated Ringer's 500 mls @ 20 mls/hr 09/18/20 16:30 09/18/20 20:54 Lr IVCONT Not Given .Q24H [facility] Sodium Chloride 1,000 mls @ 100 mls/hr 09/18/20 19:49 09/19/20 07:12 Ns IVCONT Infused .Q10H [facility] Pharmacy Consult 1 each 09/18/20 09:54 Consult Rx Perform Med Rec MISCELLANE ONCE PRN Consult order Sodium Chloride 3 ml 09/18/20 19:49 09/19/20 00:00 0.9 % Sodium Chloride Flush 3 Ml Syringe IVFLUSH Not Given QSHIFT [facility] Time Spent With Patient Time: Total time spent is greater than 50% in coordination of care (as d ocumented) at patient's floor/unit and/or counseling patient: Time with patient: 15 - 24 minutes Procedures Date of Service Date of Service: 09/19/20
[2020-09-19] MEDS: 0.9 % Sodium Chloride Flush 3 ML SYRINGE IVFLUSH (10:29)
[2020-09-19 10:54] VITALS: BP 127/74; PULSE 99; RESP 18; TEMP 36.5; O2SAT 99
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
== END 2020-09-19 13:05 | disposition home or self-care (01) | DRG 244 ==
LOC: HO.ED 09:56 → HO.EDOVER 11:13 → HO.IMC 18:19
PROVIDERS: Surgery; Admitting Provider Internal Medicine; Emergency Provider Emergency Medicine Emergency Medical Services; PCP Internal Medicine; Visit Provider Internal Medicine
PROC: 0JH606Z Insertion of Pacemaker, Dual Chamber into Chest Subcutaneous Tissue and Fascia, Open Approach (ICD-10-PCS; principal; 2020-09-18 15:30)
DX: I49.5 Sick sinus syndrome (principal); R00.1 Bradycardia, unspecified; F17.210 Nicotine dependence, cigarettes, uncomplicated; Z71.6 Tobacco abuse counseling; Z20.822 Contact with and (suspected) exposure to COVID-19; Z79.899 Other long term (current) drug therapy
CPT/HCPCS: 36415; 71045; 71046; 80053; 80307; 81003; 82077; 83690; 84443; 84484; 85025; 85610; 85730; 87635; 93005; 99285; C1785; C1892; C1898; J0690; J1100; J2250; J2405; J3010; J3370

== ENCOUNTER → 2020-10-01 14:35 | Outpatient (BNVA) | payer OTHER, SELFPAY | PROVIDERS: PCP Internal Medicine; Referring Provider Internal Medicine; Visit Provider Nurse Practitioner Family ==

== ENCOUNTER → 2020-11-05 12:54 | Outpatient (BNVA) | payer OTHER, SELFPAY | PROVIDERS: PCP Internal Medicine; Referring Provider Internal Medicine; Visit Provider Internal Medicine Cardiovascular Disease ==

== ENCOUNTER → 2020-12-12 10:23 | Outpatient (REF) | payer OTHER, SELFPAY ==
--- NOTE | 2020-12-12 10:26 | CA_ITS ---
Transthoracic Echocardiogram Patient (Last, First, Middle): Chandler Salazar, Gender: Male Date of : 1965 Age: 55 Procedure Date: 12/12/2020 Procedure Type: Transthoracic Echocardiogram Location: OP Height: 190.5 cm Weight: 90.72 kg BSA: 2.19 m2 Heart Rate: bpm BP: 123 / 73 mmHg Fabrication Supervisor: KATIE Referring MD: Melchor Hernandez MD Catalyst Unit Operator: Melchor Hernandez MD Symptoms: R55 - Syncope and collapse Study Quality: Good ECG Rhythm: Sinus Conclusions: - Essentially normal study Findings Left Ventricle Normal left ventricular size, thickness, and systolic function. The visually estimated ejection fraction is between 60-65%. Spectral Doppler is indicative of a normal filling pattern. Right Ventricle Normal right ventricular cavity size and systolic function. Atria The left atrium is normal in size. There is no evidence of interatrial shunt. The right atrium is normal in size. Aortic Valve Normal aortic valve structure and function. There is no aortic valve stenosis. There is no aortic valve regurgitation. Mitral Valve There is mild posterior mitral leaflet thickening. There is mild mitral annular calcification. There is trace mitral valve regurgitation. There is no mitral valve stenosis. Pulmonic Valve The pulmonic valve was not well visualized. Tricuspid Valve Likely normal tricuspid valve structure and function. There is trace tricuspid valve regurgitation. The right ventricular systolic pressure is normal. The right ventricular systolic pressure is 19 mmHg. Normal right atrial pressure. There is no evidence of pulmonary hypertension. Great Vessels All visible segments of the aorta are normal in size. The pulmonary artery was not well visualized. Venous The inferior vena cava is normal in size and collapses greater than 50% with inspiration. Pericardium/Pleural There is no evidence of pericardial effusion. Prior Study Comparison No prior study available for comparison. Measurements 2D Linear Measurements IVSd: 1.11 0.6-0.9/0.6-1.0 cm LVIDd: 5.05 3.9-5.3/4.2-5.9 cm LVIDd Index: 2.31 2.4-3.2/2.2-3.1 cm/m2 LVIDs: 3.45 2.0-3.6 cm LVPWd: 1.01 0.7-1.1 cm Ao Root: 3.20 2.1-3.5 cm LA Diam: 3.50 2.7-3.8/3.0-4.0 cm LAIDs Index: 1.60 1.5-2.3 cm/m2 LV Mass: 249.41 67-162/88-224 g LV Mass Index: 113.88 43-95/49-115 g/m2 LVOT Diam: 2.10 3.0+(-)1.3 cm 2D Systolic Function EF 4C: 64.30 >55% EF 2C: 66.60 >55% EF BiP: 65.90 >55% Mitral Valve MV Pk E: 0.52 MV PK A: 0.39 MV Decel Time: 127.00 E/A: 1.30 E'Lateral: 13.50 E'Medial: 7.72 E/E' Med: 6.70 E/E' Lat: 3.80 PHT: 37.00 MVA PHT: 5.95 Decel Ida: 4.09 Aortic Valve AoV Pk Hernan: 0.94 AoV Pk Grad: 4.00 LVOT LVOT Pk Hernan: 0.72 LVOT Mn Hernan: 0.48 LVOT VTI: 0.15 LVOT Pk Grad: 2.00 LVOT Mn Grad: 1.00 LVOT Diam: 2.10 LVOT Area: 3.46 Diastolic Function MV Pk E: 0.52 MV Pk A: 0.39 E/A: 1.30 E'Medial: 7.72 E/E' Med: 6.70 E' Laterial: 13.50 E/E' Lat: 3.80 Right Ventricle TAPSE (mm): 2.33 Tricuspid Valve TR Pk Hernan: 1.98 TR Pk Grad: 16.00 RA Press: 3.00 RVSP: 19.00 Great Vessels Aorta Ao Root-2D: 3.20 2.0-3.7 cm Ao Asc: 3.20 2.1-3.4 cm Updated in Other Vendor System with Status of Final Melchor Hernandez MD electronically signed on 12/14/2020 11:54:49 AM with status of Final
== END ==
LOC: HO.CARD 10:23
PROVIDERS: PCP Internal Medicine; Visit Provider Internal Medicine Cardiovascular Disease
DX: R55 Syncope and collapse (principal)
CPT/HCPCS: 93306

== ENCOUNTER → 2021-04-21 12:23 | Outpatient (BNVA) | payer OTHER, SELFPAY | PROVIDERS: PCP Internal Medicine; Referring Provider Internal Medicine; Visit Provider Internal Medicine Cardiovascular Disease ==

== ENCOUNTER → 2021-10-22 12:52 | Outpatient (BNVA) | payer OTHER, SELFPAY | PROVIDERS: PCP Internal Medicine; Referring Provider Internal Medicine; Visit Provider Internal Medicine Cardiovascular Disease | DX: Z45.018 Encounter for adjustment and management of other part of cardiac pacemaker (principal); I47.1 Supraventricular tachycardia | CPT/HCPCS: 93005; 93280 ==

== ENCOUNTER → 2022-10-19 23:59 | Outpatient (BNV) | payer OTHER, SELFPAY ==
--- NOTE | 2022-10-25 15:26 | MHC.OFFVIS ---
Intake Intake Visit Reasons: Remote Device Check- Medtronic Allergies No Known Allergies [No Known Allergies*] Allergy (Verified 05/05/20 13:44) [facility] Medical History Bradycardia (~09/2020) Enlarged prostate Nicotine dependence, cigarettes, uncomplicated Pacemaker (~09/18/20) Pectus excavatum SVT (supraventricular tachycardia) Syncope Surgical History History of pacemaker (~09/18/20) Family History Father No problems noted. Mother No problems noted. Social History Household Members: None Housing: House Do you presently have visiting nurse or other home services: No Alcohol intake: current Alcohol intake frequency: holidays/special occasions only Patient Tobacco Use Status: Current everyday Tobacco user Cigarettes Per Day: 15 Years Smoked: 30 Office Procedures Cardiac Device Check Cardiac Device Check Details: Remote pacemaker report generated 10/19/2022. Pacemaker function is adequate [id number] Cardiac Device Interrogation, pacemaker Procedure code (CPT) selection complete Coding Level of Care Code Procedure Only Diagnoses CPT Codes Cardiac Device Check - Cardiac Device 12: [id number] Cardiac Device Interrogation, pacemaker ([id number])
== END ==
PROVIDERS: PCP Internal Medicine; Visit Provider Internal Medicine Cardiovascular Disease
DX: I49.5 Sick sinus syndrome (principal); Z95.0 Presence of cardiac pacemaker
CPT/HCPCS: 93294

== ENCOUNTER → 2022-11-04 14:53 | Outpatient (BNVA) | payer OTHER, SELFPAY | PROVIDERS: PCP Internal Medicine; Visit Provider Internal Medicine Cardiovascular Disease ==

== ENCOUNTER → 2023-01-18 23:59 | Outpatient (BNV) | payer OTHER, SELFPAY ==
--- NOTE | 2023-01-31 08:52 | A.OFFVIS_ITS ---
Intake Intake Visit Reasons: Remote Device Check- Medtronic Allergies No Known Allergies [No Known Allergies*] Allergy (Verified 05/05/20 13:44) [facility] Medical History Bradycardia (~09/2020) Enlarged prostate Nicotine dependence, cigarettes, uncomplicated Pacemaker (~09/18/20) Pectus excavatum SVT (supraventricular tachycardia) Syncope Surgical History History of pacemaker (~09/18/20) Family History Father No problems noted. Mother No problems noted. Social History Household Members: None Housing: House Do you presently have visiting nurse or other home services: No Alcohol intake: current Alcohol intake frequency: holidays/special occasions only Patient Tobacco Use Status: Current everyday Tobacco user Cigarettes Per Day: 15 Years Smoked: 30 Office Procedures Cardiac Device Check Cardiac Device Check Details: Remote pacemaker report done 01/18/2023. Pacemaker function is adequate [id number] Cardiac Device Interrogation, pacemaker Procedure code (CPT) selection complete Coding Level of Care Code Procedure Only CPT Codes Cardiac Device Check - Cardiac Device 12: [id number] Cardiac Device Interrogation, pacemaker ([id number])
== END ==
PROVIDERS: PCP Internal Medicine; Visit Provider Internal Medicine Cardiovascular Disease
DX: I47.20 Ventricular tachycardia, unspecified (principal); Z95.0 Presence of cardiac pacemaker
CPT/HCPCS: 93294

== ENCOUNTER → 2023-04-18 23:59 | Outpatient (BNV) | payer OTHER, SELFPAY ==
--- NOTE | 2023-04-19 16:17 | MHC.OFFVIS ---
Intake Intake Visit Reasons: Remote Device Check- Medtr[employer] Allergies No Known Allergies [No Known Allergies*] Allergy (Verified 05/05/20 13:44) [facility] Medical History Bradycardia (~09/2020) Enlarged prostate Nicotine dependence, cigarettes, uncomplicated Pacemaker (~09/18/20) Pectus excavatum SVT (supraventricular tachycardia) Syncope Surgical History History of pacemaker (~09/18/20) Family History Father No problems noted. Mother No problems noted. Social History Household Members: None Housing: House Do you presently have visiting nurse or other home services: No Alcohol intake: current Alcohol intake frequency: holidays/special occasions only Patient Tobacco Use Status: Current everyday Tobacco user Cigarettes Per Day: 15 Years Smoked: 30 Office Procedures Cardiac Device Check Cardiac Device Check Details: Remote pacemaker report generated 04/18/2023. Pacemaker function is adequate [id number] Cardiac Device Interrogation, pacemaker Procedure code (CPT) selection complete Assessment & Plan Assessment & Plan (1) Pacemaker: Onset Date: ~09/18/20 Comment: (Medtronic DCPP, left chest - placed 09/19/20) Code(s): Z95.0 - Presence of cardiac pacemaker Plan: See above Coding Level of Care Code Procedure Only Diagnoses Pacemaker Z95.0 CPT Codes Cardiac Device Check - Cardiac Device 12: [id number] Cardiac Device Interrogation, pacemaker ([id number])
== END ==
PROVIDERS: PCP Internal Medicine; Visit Provider Internal Medicine Cardiovascular Disease
DX: R00.1 Bradycardia, unspecified (principal); Z95.0 Presence of cardiac pacemaker
CPT/HCPCS: 93294

== ENCOUNTER → 2023-07-17 23:59 | Outpatient (BNV) | payer OTHER, SELFPAY ==
--- NOTE | 2023-07-19 14:01 | A.OFFVIS_ITS ---
Intake Intake Visit Reasons: Remote device check- Medtr[employer] Allergies No Known Allergies [No Known Allergies*] Allergy (Verified 05/05/20 13:44) [facility] Medical History Bradycardia (~09/2020) Enlarged prostate Nicotine dependence, cigarettes, uncomplicated Pacemaker (~09/18/20) Pectus excavatum SVT (supraventricular tachycardia) Syncope Surgical History History of pacemaker (~09/18/20) Family History Father No problems noted. Mother No problems noted. Social History Household Members: None Housing: House Do you presently have visiting nurse or other home services: No Alcohol intake: current Alcohol intake frequency: holidays/special occasions only Patient Tobacco Use Status: Current everyday Tobacco user Cigarettes Per Day: 15 Years Smoked: 30 Office Procedures Cardiac Device Check Cardiac Device Check Details: Remote pacemaker report generated 07/17/2023. Pacemaker function is adequate [id number] Cardiac Device Interrogation, pacemaker Procedure code (CPT) selection complete Assessment & Plan Assessment & Plan (1) Pacemaker: Onset Date: ~09/18/20 Comment: (Medtronic DCPP, left chest - placed 09/19/20) Code(s): Z95.0 - Presence of cardiac pacemaker Plan: See above Coding Level of Care Code Procedure Only Diagnoses Pacemaker Z95.0 CPT Codes Cardiac Device Check - Cardiac Device 12: [id number] Cardiac Device I nterrogation, pacemaker ([id number])
== END ==
PROVIDERS: PCP Internal Medicine; Visit Provider Internal Medicine Cardiovascular Disease
DX: Z45.018 Encounter for adjustment and management of other part of cardiac pacemaker (principal)
CPT/HCPCS: 93294

== ENCOUNTER → 2023-10-16 23:59 | Outpatient (BNV) | payer OTHER, SELFPAY ==
--- NOTE | 2023-10-25 16:06 | A.OFFVIS_ITS ---
Intake Visit Reasons: Remote device check- Medtronic Allergies No Known Allergies [No Known Allergies*] Allergy (Verified 05/05/20 13:44) [facility] Medical History SVT (supraventricular tachycardia) Enlarged prostate Pectus excavatum Nicotine dependence, cigarettes, uncomplicated Pacemaker (~09/18/20) Bradycardia (~09/2020) Syncope Surgical History History of pacemaker (~09/18/20) Family History Father No problems noted. Mother No problems noted. Social History Household Members: None Housing: House Do you presently have visiting nurse or other home services: No Alcohol intake: current Alcohol intake frequency: holidays/special occasions only Patient Tobacco Use Status: Current everyday Tobacco user Cigarettes Per Day: 15 Years Smoked: 30 Office Procedures Cardiac Device Check Cardiac Device Check Details: Remote pacemaker report generated 10/16/2023. Pacemaker function is adequate [id number] Cardiac Device Interrogation, pacemaker Procedure code (CPT) selection complete Assessment & Plan Assessment & Plan (1) Pacemaker: Onset Date: ~09/18/20 Comment: (Medtronic DCPP, left chest - placed 09/19/20) Code(s): Z95.0 - Presence of cardiac pacemaker Category: Medical Plan: See above Coding Level of Care Code Procedure Only Diagnoses Pacemaker Z95.0 CPT Codes Cardiac Device Check - Cardiac Device 12: [id number] Cardiac Device Interrogation, pacemaker ([id number])
== END ==
PROVIDERS: PCP Internal Medicine; Visit Provider Internal Medicine Cardiovascular Disease
DX: Z45.018 Encounter for adjustment and management of other part of cardiac pacemaker (principal)
CPT/HCPCS: 93294

== ENCOUNTER 2023-10-17 10:56 | Outpatient (AMB) | payer OTHER, SELFPAY ==
--- NOTE | 2023-10-17 10:59 | A.OFFVIS_ITS ---
Vital Signs 10/17/23 11:00 Height 6 ft 3 in Weight 196 lb 3.382 oz BMI 24.5 BP 122/70 Blood Pressure Location Lt brachial Position Sitting Pulse 72 Pulse Source Monitor Intake Visit Reasons: 1 yr f/up w/ med ck Intake Note: pt is for follow up pc check with ekg pt feels good Allergies No Known Allergies [No Known Allergies*] Allergy (Verified 05/05/20 13:44) HPI Comments Details: Chandler comes for follow-up. He has been doing very well from cardiac perspective. Denies any significant cardiac symptoms. Denies any exertional chest pain or shortness of breath. Denies any prolonged palpitation irregular heartbeat. No lightheadedness, syncope. Pacemaker is working well. Taking all his medications. [facility] Medical History SVT (supraventricular tachycardia) Enlarged prostate Pectus excavatum Nicotine dependence, cigarettes, uncomplicated Pacemaker (~09/18/20) Bradycardia (~09/2020) Syncope Surgical History History of pacemaker (~09/18/20) Family History Father No problems noted. Mother No problems noted. Social History Household Members: None Housing: House Do you presently have visiting nurse or other home services: No Alcohol intake: current Alcohol intake frequency: holidays/special occasions only Patient Tobacco Use Status: Current everyday Tobacco user Cigarettes Per Day: 15 Years Smoked: 30 Review of Systems Const Denies weakness ENT Denies dizziness Card Denies chest pain, Denies chest pain with activity, Denies syncope, Denies rapid heart rate, Denies pedal edema, Denies edema, Denies leg edema, Denies l ightheadedness, Denies palpitations, Denies dyspnea, Denies dyspnea on exertion and Denies orthopnea Resp Denies cough, Denies dyspnea and Denies dyspnea on exertion GI Denies hematochezia and Denies change in stool character Musc Denies abnormal gait, Denies muscle cramps, Denies muscle weakness, Denies numbness, Denies radiating pain into limb and Denies tingling Neuro Denies abnormal gait, Denies dizziness, Denies syncope, Denies numbness, Denies tingling and Denies weakness Endo Denies palpitations Physical Exam Vital Signs: Last Vital Signs Pulse 72 10/17/23 11:00 BP 122/70 10/17/23 11:00 BMI result Body Mass Index 24.5 Const General: cooperative, comfortable, no acute distress, alert, awake and anxious Nutritional Appearance: average body habitus and well nourished Orientation/consciousness: patient oriented x3 Limitations: no limitations Neck Neck: Yes trachea midline, Yes supple and Yes no JVD Chest Chest palpation & inspection: other (Pacemaker pocket is benign) Resp Effort & Inspection: normal respiratory effort Auscultation: clear to auscultation bilaterally Cardio Jugular venous distension: no JVD Rate: regular rate and tachycardic Rhythm: regular rhythm Heart sounds: S1 normal heart sound present, S2 normal heart sound present, no click, no gallops, no murmurs and no rubs GI Auscultation: normal bowel sounds Skin General skin exam: no rashes or lesions noted Neuro General: patient oriented x3 and no focal motor deficits Extrem General: Yes no clubbing, cyanosis or edema Office Procedures Cardiac Device Check Cardiac Device Check Details: Dual-chamber Medtronic pacemaker in place. Programmed in MVP mode with rate drop response with multiple rate drop response noted. Multiple fast ventricular rate episode noted consistent with possibly sinus tachycardia and/or SVT. No symptoms. Atrial ventricular sensing is excellent. Atrial ventricular pacing thresholds excellent and reprogrammed to enhance battery life. Pacing lead impedance is stable. Battery life is at about 12 years [id number] Cardiac Device Check, pacemaker dual lead Procedure code (CPT) selection complete EKG Details: EKG shows normal sinus rhythm with normal EKG [id number]-[id number], Complete Assessment & Plan Assessment & Plan (1) SVT (supraventricular tachycardia): Code(s): I47.1 - Supraventricular tachycardia Category: Medical Plan: SVT episodes with multiple high ventricular rate episodes without any obvious symptoms. The episodes are most likely sinus tachycardia. Continue to maintain adequate hydration. Continue metoprolol therapy. Avoidance of stimulants was discussed advised to call me with any new symptoms. (2) Syncope: Comment: (Syncope with 10 second pauses 09/18/20 - s/p pacer) Code(s): R55 - Syncope and collapse Category: Medical Qualifiers: Encounter type: initial encounter Plan: Syncope in the past with sinus pause. Status post dual-chamber pacemaker with rate drop response. Most suggestive of malignant vasovagal syncope. No syncopal episodes since pacemaker placement. Pacemaker pacing at about 12% rate in the atrium. Will continue monitor pacemaker every 3 months remotely. Continue follow up in the clinic 1 year's time. Advised to aggressively hydrate himself especially any heart weather situations. Will follow up in the clinic in 1 year's time, sooner p.r.n.. Thank you for allowing me to partake in his care Coding Level of Care Code Est Pt Level 4 (14610) Diagnoses SVT (supraventricular tachycardia) I47.1 Syncope R55 Encounter type: initial encounter CPT Codes Cardiac Device Check - Cardiac Device 2: [id number] Cardiac Device Check, pacemaker dual lead ([id number]) EKG - CPT: 41082-Gsdzvelxrsscnejdx, Complete ([id number])
[2023-10-17 11:00] VITALS: BP 122/70; PULSE 72; BMI 24.5
== END 2023-10-17 11:19 | disposition home or self-care (01) ==
PROVIDERS: PCP Internal Medicine; Visit Provider Internal Medicine Cardiovascular Disease
DX: I47.10 Supraventricular tachycardia, unspecified (principal); R55 Syncope and collapse; Z95.0 Presence of cardiac pacemaker
CPT/HCPCS: 93010; 93280; 99214

== ENCOUNTER → 2023-10-17 10:56 | Outpatient (BNVA) | payer OTHER, SELFPAY | PROVIDERS: PCP Internal Medicine; Visit Provider Internal Medicine Cardiovascular Disease | DX: I47.10 Supraventricular tachycardia, unspecified (principal); R55 Syncope and collapse; Z79.899 Other long term (current) drug therapy; Z45.018 Encounter for adjustment and management of other part of cardiac pacemaker | CPT/HCPCS: 93005; 93280 ==

== ENCOUNTER → 2024-01-15 23:59 | Outpatient (BNV) | payer OTHER, SELFPAY ==
--- NOTE | 2024-01-17 14:19 | MHC.OFFVIS ---
Intake Visit Reasons: Remote device check- Medtr[employer] Allergies No Known Allergies [No Known Allergies*] Allergy (Verified 05/05/20 13:44) [facility] Medical History SVT (supraventricular tachycardia) Enlarged prostate Pectus excavatum Nicotine dependence, cigarettes, uncomplicated Pacemaker (~09/18/20) Bradycardia (~09/2020) Syncope Surgical History History of pacemaker (~09/18/20) Family History Father No problems noted. Mother No problems noted. Social History Household Members: None Housing: House Do you presently have visiting nurse or other home services: No Alcohol intake: current Alcohol intake frequency: holidays/special occasions only Patient Tobacco Use Status: Current everyday Tobacco user Cigarettes Per Day: 15 Years Smoked: 30 Office Procedures Cardiac Device Check Cardiac Device Check Details: Remote pacemaker report generated 01/15/2024. Pacemaker function is adequate [id number] Cardiac Device Interrogation, pacemaker Procedure code (CPT) selection complete Assessment & Plan Assessment & Plan (1) Pacemaker: Onset Date: ~09/18/20 Comment: (Medtronic DCPP, left chest - placed 09/19/20) Code(s): Z95.0 - Presence of cardiac pacemaker Category: Medical Plan: See above Coding Level of Care Code Procedure Only Diagnoses Pacemaker Z95.0 CPT Codes Cardiac Device Check - Cardiac Device 12: [id number] Cardiac Device Interrogation, pacemaker ([id number])
== END ==
PROVIDERS: PCP Internal Medicine; Visit Provider Internal Medicine Cardiovascular Disease
DX: Z45.018 Encounter for adjustment and management of other part of cardiac pacemaker (principal)
CPT/HCPCS: 93294

== ENCOUNTER → 2024-04-15 23:59 | Outpatient (BNV) | payer OTHER, SELFPAY ==
--- NOTE | 2024-04-23 16:29 | A.OFFVIS_ITS ---
Intake Visit Reasons: Remote device check- Medtr[employer] Allergies No Known Allergies [No Known Allergies*] Allergy (Verified 05/05/20 13:44) [facility] Medical History SVT (supraventricular tachycardia) Enlarged prostate Pectus excavatum Nicotine dependence, cigarettes, uncomplicated Pacemaker (~09/18/20) Bradycardia (~09/2020) Syncope Surgical History History of pacemaker (~09/18/20) Family History Father No problems noted. Mother No problems noted. Social History Household Members: None Housing: House Do you presently have visiting nurse or other home services: No Alcohol intake: current Alcohol intake frequency: holidays/special occasions only Patient Tobacco Use Status: Current everyday Tobacco user Cigarettes Per Day: 15 Years Smoked: 30 Office Procedures Cardiac Device Check Cardiac Device Check Details: Remote pacemaker report generated 04/15/2023. Pacemaker function is adequate [id number] Cardiac Device Interrogation, pacemaker Procedure code (CPT) selection complete Assessment & Plan Assessment & Plan (1) Pacemaker: Onset Date: ~09/18/20 Comment: (Medtronic DCPP, left chest - placed 09/19/20) Code(s): Z95.0 - Presence of cardiac pacemaker Category: Medical Plan: See above Coding Level of Care Code Procedure Only Diagnoses Pacemaker Z95.0 CPT Codes Cardiac Device Check - Cardiac Device 12: [id number] Cardiac Device Interrogation, pacemaker ([id number])
== END ==
PROVIDERS: PCP Internal Medicine; Visit Provider Internal Medicine Cardiovascular Disease
DX: Z45.018 Encounter for adjustment and management of other part of cardiac pacemaker (principal)
CPT/HCPCS: 93294

== ENCOUNTER → 2024-07-15 23:59 | Outpatient (BNV) | payer OTHER, SELFPAY ==
--- NOTE | 2024-07-17 13:40 | A.OFFVIS_ITS ---
Intake Visit Reasons: Remote device check- Medtr[employer] Allergies No Known Allergies [No Known Allergies*] Allergy (Verified 05/05/20 13:44) [facility] Medical History SVT (supraventricular tachycardia) Enlarged prostate Pectus excavatum Nicotine dependence, cigarettes, uncomplicated Pacemaker (~09/18/20) Bradycardia (~09/2020) Syncope Surgical History History of pacemaker (~09/18/20) Family History Father No problems noted. Mother No problems noted. Social History Household Members: None Housing: House Do you presently have visiting nurse or other home services: No Alcohol intake: current Alcohol intake frequency: holidays/special occasions only Patient Tobacco Use Status: Current everyday Tobacco user Cigarettes Per Day: 15 Years Smoked: 30 Office Procedures Cardiac Device Check Cardiac Device Check Details: Remote pacemaker report generated on 07/15/2024. Pacemaker function is adequate [id number] Cardiac Device Interrogation, pacemaker Procedure code (CPT) selection complete Assessment & Plan Assessment & Plan (1) Pacemaker: Onset Date: ~09/18/20 Comment: (Medtronic DCPP, left chest - placed 09/19/20) Code(s): Z95.0 - Presence of cardiac pacemaker Category: Medical Plan: See above Coding Level of Care Code Procedure Only Diagnoses Pacemaker Z95.0 CPT Codes Cardiac Device Check - Cardiac Device 12: [id number] Cardiac Device Interrogation, pacemaker ([id number])
== END ==
PROVIDERS: PCP Internal Medicine; Visit Provider Internal Medicine Cardiovascular Disease
DX: Z45.018 Encounter for adjustment and management of other part of cardiac pacemaker (principal)
CPT/HCPCS: 93294

== ENCOUNTER → 2024-10-14 23:59 | Outpatient (BNV) | payer OTHER, SELFPAY ==
--- NOTE | 2024-10-18 16:33 | MHC.OFFVIS ---
Intake Visit Reasons: Remote device check- Medtr[employer] Allergies No Known Allergies (No Known Allergies*) Allergy (Verified 05/05/20 13:44) [facility] Medical History SVT (supraventricular tachycardia) Enlarged prostate Pectus excavatum Nicotine dependence, cigarettes, uncomplicated Pacemaker (~09/18/20) Bradycardia (~09/2020) Syncope Surgical History History of pacemaker (~09/18/20) Family History Father No problems noted. Mother No problems noted. Social History Household Members: None Housing: House Do you presently have visiting nurse or other home services: No Alcohol intake: current Alcohol intake frequency: holidays/special occasions only Patient Tobacco Use Status: Current everyday Tobacco user Cigarettes Per Day: 15 Years Smoked: 30 Office Procedures Cardiac Device Check Cardiac Device Check Details: Remote pacemaker report generated 10/14/2024. Pacemaker function is adequate [id number] Cardiac Device Interrogation, pacemaker Procedure code (CPT) selection complete Assessment & Plan Assessment & Plan (1) Pacemaker: Onset Date: ~09/18/20 Comment: (Medtronic DCPP, left chest - placed 09/19/20) Code(s): Z95.0 - Presence of cardiac pacemaker Category: Medical Plan: See above Coding Level of Care Code Procedure Only Diagnoses Pacemaker Z95.0 CPT Codes Cardiac Device Check - Cardiac Device 12: [id number] Cardiac Device Interrogation, pacemaker ([id number])
== END ==
PROVIDERS: PCP Internal Medicine; Visit Provider Internal Medicine Cardiovascular Disease
DX: Z45.018 Encounter for adjustment and management of other part of cardiac pacemaker (principal)
CPT/HCPCS: 93294

== ENCOUNTER 2024-10-22 11:12 | Outpatient (AMB) | payer OTHER, SELFPAY ==
--- NOTE | 2024-10-22 11:15 | MHC.OFFVIS ---
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 Has had no cardiac symptoms. Doing very well. Denies any lightheadedness, syncope. Denies any palpitations. No exertional chest pain. No shortness of breath, orthopnea, PND. [facility] Medical History SVT (supraventricular tachycardia) Enlarged prostate Pectus excavatum Nicotine dependence, cigarettes, uncomplicated Pacemaker (~09/18/20) Bradycardia (~09/2020) Syncope Surgical History History of pacemaker (~09/18/20) Family History Father No problems noted. Mother No problems noted. Social History Household Members: None Housing: House Do you presently have visiting nurse or other home services: No Alcohol intake: current Alcohol intake frequency: holidays/special occasions only Patient Tobacco Use Status: Current everyday Tobacco user Cigarettes Per Day: 15 Years Smoked: 30 Review of Systems Const Denies chills, Denies fatigue, Denies fever(s), Denies frequent falls, Denies weakness, Denies weight gain and Denies weight loss ENT Denies dizziness Card Denies chest pain, Denies leg edema, Denies lightheadedness, Denies palpitations, Denies dyspnea, Denies dyspnea on exertion, Denies orthopnea and Denies other (loss of consciousness) Resp Denies cough, Denies dyspnea and Denies dyspnea on exertion GI Denies hematochezia and Denies change in stool character Musc Denies abnormal gait, Denies muscle weakness, Denies numbness, Denies radiating pain into limb and Denies tingling Neuro Denies abnormal gait, Denies dizziness, Denies frequent falls, Denies numbness, Denies tingling and Denies weakness Endo Denies fatigue and Denies palpitations Physical Exam Vital Signs: Last Vital Signs Pulse 93 10/22/24 11:16 BP 110/70 10/22/24 11:16 BMI result Body Mass Index 25.1 Const General: cooperative, comfortable, no acute distress, alert, awake and anxious Nutritional Appearance: average body habitus and well nourished Orientation/consciousness: patient oriented x3 Limitations: no limitations Neck Neck: Yes trachea midline, Yes supple and Yes no JVD Chest Chest palpation & inspection: other (Pacemaker pocket is benign) Resp Effort & Inspection: normal respiratory effort Auscultation: clear to auscultation bilaterally Cardio Jugular venous distension: no JVD Rate: regular rate and tachycardic Rhythm: regular rhythm Heart sounds: S1 normal heart sound present, S2 normal heart sound present, no click, no gallops, no murmurs and no rubs GI Auscultation: normal bowel sounds Skin General skin exam: no rashes or lesions noted Neuro General: patient oriented x3 and no focal motor deficits Extrem General: Yes no clubbing, cyanosis or edema Office Procedures Cardiac Device Check Cardiac Device Check Details: Dual-chamber Medtronic pacemaker in place. Programmed in MVP mode at 60 beats per minute. Pacemaker function appears to be adequate. Atrial pacing 10% of time. Ventricular pacing 5% of time. Atrial ventricular pacing thresholds adequate. Atrial ventricular lead impedance is stable. Multiple high ventricular rate episode notice some appear to be sinus tachycardia and some nonsustained VT. Battery life is excellent 62063-BV Cardiac Device Check, pacemaker dual lead Procedure code (CPT) selection complete EKG Details: EKG shows normal sinus rhythm normal EKG 63132-[id number], Complete Assessment & Plan Assessment & Plan (1) SSS (sick sinus syndrome): Code(s): I49.5 - Sick sinus syndrome Category: Medical Plan: Sick sinus syndrome status post dual-chamber pacemaker in place. Pacemaker is working well. Reprogrammed for adequate functioning. Will follow remotely every 3 months and follow up in the clinic in 1 year's time. Encouraged to maintain activity level as tolerated. (2) SVT (supraventricular tachycardia): Code(s): I47.1 - Supraventricular tachycardia Category: Medical Plan: High ventricular rate episodes some of which appear to be SVT/inappropriate sinus tachycardia. Some appear to be nonsustained VT. Currently not having any symptoms. Continue current therapy with metoprolol. Avoidance of stimulants was discussed. Stress mitigation strategies were discussed. Will follow up in the clinic in 1 year's time, sooner p.r.n.. Thank you for allowing me to partake in her care Coding Level of Care Code Est Pt Level 4 (00811) Complex EM visit Add On G2211 Diagnoses SSS (sick sinus syndrome) I49.5 SVT (supraventricular tachycardia) I47.1 CPT Codes Cardiac Device Check - Cardiac Device 2: [id number] Cardiac Device Check, pacemaker dual lead ([id number]) EKG - CPT: 55304-[id number], Complete ([id number])
[2024-10-22 11:16] VITALS: BP 110/70; PULSE 93; BMI 25.1
== END 2024-10-22 11:29 | disposition home or self-care (01) ==
LOC: HO.HCS 11:12
PROVIDERS: PCP Internal Medicine; Visit Provider Internal Medicine Cardiovascular Disease
DX: I49.5 Sick sinus syndrome (principal); I47.10 Supraventricular tachycardia, unspecified
CPT/HCPCS: 93010; 93280; 99214

== ENCOUNTER → 2024-10-22 11:12 | Outpatient (BNVA) | payer OTHER, SELFPAY | PROVIDERS: PCP Internal Medicine; Visit Provider Internal Medicine Cardiovascular Disease | DX: Z95.0 Presence of cardiac pacemaker (principal); I49.5 Sick sinus syndrome; I47.10 Supraventricular tachycardia, unspecified | CPT/HCPCS: 93005; 93280 ==

== ENCOUNTER → 2025-01-13 23:59 | Outpatient (BNV) | payer OTHER, SELFPAY ==
--- NOTE | 2025-01-16 12:23 | MHC.OFFVIS ---
Intake Visit Reasons: Remote device check- Medtronic Allergies No Known Allergies (No Known Allergies*) Allergy (Verified 05/05/20 13:44) [facility] Medical History SVT (supraventricular tachycardia) Enlarged prostate Pectus excavatum Nicotine dependence, cigarettes, uncomplicated Pacemaker (~09/18/20) Bradycardia (~09/2020) Syncope Surgical History History of pacemaker (~09/18/20) Family History Father No problems noted. Mother No problems noted. Social History Household Members: None Housing: House Do you presently have visiting nurse or other home services: No Alcohol intake: current Alcohol intake frequency: holidays/special occasions only Patient Tobacco Use Status: Current everyday Tobacco user Cigarettes Per Day: 15 Years Smoked: 30 Office Procedures Cardiac Device Check Cardiac Device Check Details: Remote pacemaker report generated 01/15/2025. Pacemaker function is adequate [id number] Cardiac Device Interrogation, pacemaker Procedure code (CPT) selection complete Assessment & Plan Assessment & Plan (1) Pacemaker: Onset Date: ~09/18/20 Comment: (Medtronic DCPP, left chest - placed 09/19/20) Code(s): Z95.0 - Presence of cardiac pacemaker Category: Medical Plan: See above Coding Level of Care Code Procedure Only Diagnoses Pacemaker Z95.0 CPT Codes Cardiac Device Check - Cardiac Device 12: [id number] Cardiac Device Interrogation, pacemaker ([id number])
== END ==
PROVIDERS: PCP Internal Medicine; Visit Provider Internal Medicine Cardiovascular Disease
DX: Z45.018 Encounter for adjustment and management of other part of cardiac pacemaker (principal)
CPT/HCPCS: 93294